=== PATIENT | female | born 1960 | race African-American/Black ===

== ENCOUNTER 2019-12-17 14:46 | Outpatient (CLI) | payer BC, SELFPAY ==
--- NOTE | ~2019-12-17 | XR_ITS ---
EXAMINATION: XR lumbar spine min 4V DATE: 12/17/2019 15:21 INDICATION: Low back pain. TECHNIQUE: 5 views of lumbar spine including flexion and extension views were obtained. COMPARISON: None. FINDINGS: There is 6 degrees levocurvature of lumbar spine. Vertebral body heights and intervertebral disc heights are normal. There are endplate osteophytes at most levels. There is no abnormal motion with flexion or extension. There is moderate to severe facet joint osteoarthritis in lower lumbar spi ne. There is severe right hip osteoarthritis and moderate left hip osteoarthritis. IMPRESSION: 1. Mild lumbar spondylosis. 2. Severe right hip osteoarthritis and moderate left hip osteoarthritis. Reviewed, dictated and finalized at location B.
== END 2019-12-17 14:47 | disposition home or self-care (01) ==
LOC: ANHIMG 14:52
PROVIDERS: PCP Physician Assistant; Visit Provider Physician Assistant
DX: M47.896 Other spondylosis, lumbar region (principal); M16.0 Bilateral primary osteoarthritis of hip
CPT/HCPCS: 72110

== ENCOUNTER 2021-02-24 08:17 | Outpatient (CLI) | payer MEDICARE, SELFPAY ==
--- NOTE | ~2021-02-24 | CT_ITS ---
EXAMINATION: CT diagnostic chest w con DATE: 02/24/2021 08:49 INDICATION: Lung mass TECHNIQUE: Transaxial computed tomographic images of the chest were obtained after the administration of 75 cc of Omnipaque 350 intravenous contrast. The dose-length product (DLP) was 257.12 mGy-cm. Ite rative reconstruction was used. COMPARISON: None FINDINGS: There is a 3.4 x 2.2 cm left upper lobe mass. There is a 9 mm nodule of the left lower lobe on image 97. There is mild emphysema. There is no pleural effusion or pneumothorax. No pathologicall y enlarged thoracic lymph nodes are identified. The heart size is normal. There is mild thoracic spon dylosis. IMPRESSION: 1. Left upper lobe mass, consistent with primary bronchogenic carcinoma. CT-guided biopsy is recommen ded. 2. Indeterminate 9 mm nodule of the left lower lobe, could reflect metastatic disease. Reviewed, dictated and finalized at location B. IMPRESSION: 1. Left upper lobe mass, consistent with primary bronchogenic carcinoma. CT-addie ded biopsy is recommended. 2. Indeterminate 9 mm nodule of the left lower lobe, could reflect metastatic d isease.
[2021-02-24 08:47] LABS: Estimated Glomerular Filt Rate > 60
== END 2021-02-24 08:18 | disposition home or self-care (01) ==
LOC: ANHIMG 08:23
PROVIDERS: PCP Physician Assistant; Visit Provider Family Medicine
DX: R91.8 Other nonspecific abnormal finding of lung field (principal)
CPT/HCPCS: 71260; Q9967